=== PATIENT | female | born 1930 | race Caucasian/White ===

== ENCOUNTER 2017-07-04 15:42 | Inpatient (IN) | payer OTHER, MEDICAID ==
[~2017-07-04] VITALS: Ht 157.4 cm; Wt 104.3 kg
--- NOTE | ~2017-07-04 | PR ---
[place], [place] PROGRESS NOTE NAME: YAO EDUARDO UNIT #: [id number] ROOM: 316 DOCTOR: FAISAL HAMMOND MD BIRTHDATE: [birth year] DOS: 07/06/2017 CHIEF COMPLAINT: "Hello, how are you?" SUMMARY OF THE VISIT: The patient was interviewed as she was resting in bed. She engaged readily in conversation, albeit superficial. There was no agitation or aggression. There was no mood lability. She was very confused, however, and her responses tended to be at times nonsensical and inappropriate to the questions asked of her. MENTAL STATUS: She is alert and oriented to person, doubtful to place, certainly not time. Mood is still somewhat depressed with anxious overtones. There is still the presence of paranoia. Short term memory is exceedingly poor. PLAN: I will continue to push the Exelon patch up to a more therapeutic level, moving from 4.6 mg a day to 9.5 mg a day, continue to support and monitor, engaging in individual and ken milieu activity and discharging when stable. FAISAL HAMMOND MD CM:PNTRANS [id number] FAISAL HAMMOND MD 07/08/17 0539 interface
--- NOTE | ~2017-07-04 | WRIGHTHP ---
[place], [place] PATIENT HISTORY AND PHYSICAL EXAM NAME: YAO EDUARDO [facility] #: [id number] UNIT #: [id number] ROOM: 316 DOCTOR: FAISAL HAMMOND MD BIRTHDATE: [birth year] DOS: 07/05/2017 INITIAL PSYCHIATRIC EVALUATION CHIEF COMPLAINT: "Oh, hello there, how are you today? Thanks for breakfast. HISTORY OF PRESENT ILLNESS: This is an 87-year-old white female who is a resident of [facility]. The patient has become increasingly depressed and paranoid there. She repeatedly feels that she is getting raped at night and is constantly stating she is fearful that she will be raped again. She is not sleeping or eating well. She is not allowing them to attend her ADLs. She has become frankly combative and resistive to care. She has become verbally and physically aggressive. She is putting herself and others at significant risk of harm. She continues to voice these irrational fears and is admitted now to rule out organic factors, to stabilize on medication, to return then to [facility] or alternative placement when stable. PAST MEDICAL HISTORY: Remarkable for coronary artery disease, chronic AFib, chronic kidney disease stage III, GERD, gout, hyperlipidemia, hypertension, osteoarthritis, osteoporosis, peripheral vascular disease, sensorineural hearing loss of both ears, systolic and diastolic congestive heart failure and vascular dementia. MENTAL STATUS: She is alert and oriented to self. It is unclear if she realizes she is in the hospital. She is certainly not oriented to time. Mood does seem to be overwhelmingly depressed. She appears sad and is very anxious. She is grossly delusional and paranoid. She processes slowly, some of this is exacerbated by her hearing loss. Short term memory is exceedingly poor. DIAGNOSES: Major depression, recurrent with psychotic features and Alzheimer's dementia. PLAN: I will go ahead and discontinue her Xanax at this point; trying to simplify her regimen and the Xanax could at times be causing some behavioral disinhibition. I will augment her Namenda with Exelon patch 4.6 mg a day and plan to titrate this up as needed and as tolerated. I will maintain the Risperdal to break the psychosis and the Remeron to impact positively on the depression. We will engage in individual and ken milieu activity, discharging then when psychiatrically stable. [place], [place] PATIENT HISTORY AND PHYSICAL EXAM NAME: YAO EDUARDO UNIT #: [id number] ROOM: [facility] DOCTOR: FAISAL HAMMOND MD BIRTHDATE: [birth year] FAISAL HAMMOND MD CM:HISPHYS:PATIENT HISTORY AND PHYSICAL EXAMINATION [phone] [id number] FAISAL HAMMOND MD 07/05/1712 interface
--- NOTE | ~2017-07-04 | PR ---
[place], [place] PROGRESS [id number] UN[facility] #: [id number] ROOM: 316 DOCTOR: FAISAL HAMMOND MD BIRTHDATE: [birth year] DOS: 07/08/2017 CHIEF COMPLAINT: "The patient was sleeping very soundly and could not be awakened." SUMMARY OF THE VISIT: The patient was resting in bed. She had a horrible evening. She began screaming at the top of her lungs at 6:00 p.m. and did not stop and so she was given several PRNs at night to finally help her sleep. This has been the pattern that was very much present at the senior care. She continues to exhibit extreme paranoia and delusions per the nursing staff. MENTAL STATUS: My mental status was limited due to her level of somnolence. PLAN: I will discontinue the Risperdal. I will start Latuda 40 mg to be given at 1800 hours to attempt to head off this screaming. The Latuda will stabilize mood as well as decrease psychosis. We will engage in individual and ken milieu activities, returning to the least restrictive environment when psychiatrically stable. FAISAL HAMMOND MD CM:PNTRANS [id number] FAISAL HAMMOND MD 07/08/17 1105 interface
--- NOTE | ~2017-07-04 | PR ---
[place], [place] PROGRESS NOTE NAME: YAO EDUARDO UNIT #: [id number] ROOM: 316 DOCTOR: FAISAL HAMMOND MD BIRTHDATE: [birth year] DOS: 07/07/2017 CHIEF COMPLAINT: "I am okay." SUMMARY OF THE VISIT: The patient was communicated in the dining area with a white board. I did ask her if she was feeling okay. She nodded that she did. I asked her if she needed anything she nodded that she did not. I ask her if she was feeling better since she has been here, she nodded that she does attempt to communicate. Her speech is a bit difficult to understand, but she is understandable. She seemed calm and fairly relaxed as she was eating her breakfast this morning. She voiced no other complaints. MENTAL STATUS: She is alert and oriented to person, place, but not necessarily time. Mood seems to be trending towards euthymia. Affect is more appropriate. There is no hypomania or adali. She did not voice any paranoia or delusions when given the chance. Short term memory remains very poor. PLAN: I had increased her Exelon patch to 9.5 mg yesterday. I will go ahead and increase it tomorrow to 13.3 maxing out potential benefit. Maintain Namenda 10 mg b.i.d. Maintain her Risperdal and her Remeron to combat the major depression with psychotic features. Engage in individual and ken milieu activity with the ultimate plan to return back to [facility] when psychiatrically stable. FAISAL HAMMOND MD CM:PNTRANS [id number] FAISAL HAMMOND MD 07/07/17 1004 interface
[2017-07-04 18:52] VITALS: BP 150/82
[2017-07-04] MEDS ORDERED: RAMIPRIL10 MG PO (19:53)
[2017-07-04] MEDS ORDERED: ALLOPURINOL100 MG PO (19:54)
[2017-07-04] MEDS ORDERED: HYDROXYZINE PAM25 M1 PO (19:55)
[2017-07-04] MEDS ORDERED: CLOPIDOGREL75 MG PO (19:59)
[2017-07-04 20:00] VITALS: BP 145/86
[2017-07-04] MEDS ORDERED: ALPRAZOLAM0.25 M2 PO (20:40)
[2017-07-04] MEDS ORDERED: Transderm-Nitr0.2 MG TD (20:40)
[2017-07-04] MEDS ORDERED: BYSTOLIC2.5 MG PO (20:43)
[2017-07-04] MEDS ORDERED: RIVASTIGMINE1 EACH T (20:43)
[2017-07-04] MEDS ORDERED: NAMENDA10 MG PO (20:45)
[2017-07-04] MEDS ORDERED: SARNA ANTI-ITC222 ML T (20:48)
[2017-07-04] MEDS ORDERED: KENALOG 0.1%80 GM T (20:50)
[2017-07-04] MEDS ORDERED: AQUAPHOR OINTM396 GM T (20:52)
[2017-07-04] MEDS ORDERED: CELEXA20 MG PO (20:52)
[2017-07-04] MEDS ORDERED: DEPAKOTE250 MG PO (20:53)
[2017-07-04] MEDS ORDERED: DEPAKOTE ER500 MG PO (20:53)
[2017-07-04] MEDS ORDERED: BISCOLAX10 M1 R (20:56)
[2017-07-04 22:17] VITALS: BP 145/86
[2017-07-05 07:01] LABS: BASO % 0.3 % (0.0-1.0); EOS # 0.4 10*3/uL (0.0-0.4); EOS % 5.6 % (1.0-4.0); HEMATOCRIT 37.1 % (37.0-47.0); HEMOGLOBIN 11.1 g/dl (12.0-16.0); LYMPH # 0.8 10*3/uL (1.3-4.4); LYMPH % 13.2 % (27.0-41.0); MEAN CELL VOLUME 99.2 fl (81.0-99.0); MEAN CORPUSCULAR HGB 29.7 pg (27.0-31.0); MEAN CORPUSCULAR HGB CONC 29.9 g/dl (33.0-37.0); MEAN PLATELET VOLUME 9.9 fl (9.6-12.3); MONO # 0.7 10*3/uL (0.1-1.0); MONO % 11.1 % (3.0-9.0); NEUT # 4.3 10*3/uL (2.3-7.9); NEUT % 69.3 % (47.0-73.0); PLATELET COUNT AUTOMATED 209 10*3/uL (130-400); RED BLOOD COUNT 3.74 10*6/uL (4.10-5.10); RED CELL DISTRI WIDTH 15.7 % (0-14.5); WHITE BLOOD COUNT 6.2 10*3/uL (4.8-10.8)
[2017-07-05 08:07] LABS: ALBUMIN 2.4 gm/dl (3.1-4.5); CREATININE 1.16 mg/dL (0.55-1.02); POTASSIUM 4.4 mmol/L (3.5-5.1); TOTAL PROTEIN 6.2 gm/dL (6.4-8.2)
[2017-07-05 08:14] LABS: VITAMIN D, 25-HYDROXY 14.8 ng/mL (30-100)
[2017-07-05 08:15] LABS: THYROID STIM HORMONE (HS) 2.63 uIU/ml (0.358-4.75)
[2017-07-05 08:21] VITALS: BP 139/76
[2017-07-05 17:06] LABS: BILIRUBIN NEGATIVE (NEGATIVE); BLOOD 1+ (NEGATIVE); CLARITY CLOUDY (CLEAR); COLOR YELLOW (YELLOW); GLUCOSE NEGATIVE (NEGATIVE); KETONE NEGATIVE (NEGATIVE); LEUKO ESTERASE 3+ (NEGATIVE); NITRITE POSITIVE (NEGATIVE); PH 5.5 (5.0-9.0); SPECIFIC GRAVITY 1.025 (1.005-1.030); UROBILINOGEN 0.2 E.U./dl (0.2-1.0)
[2017-07-05 17:13] LABS: BACTERIA 2+; WBC TNTC wbc/hpf (0-5)
[2017-07-05 20:00] VITALS: BP 156/70
[2017-07-06 08:10] VITALS: BP 143/78
[2017-07-06 20:00] VITALS: BP 141/72
[2017-07-07 09:22] VITALS: BP 140/70
[2017-07-07 20:00] VITALS: BP 135/72
[2017-07-08 08:02] VITALS: BP 138/68
[2017-07-08 20:00] VITALS: BP 142/87
[2017-07-09 08:04] VITALS: BP 159/85
== END 2017-07-09 12:00 | disposition other institution (70) | DRG 884 ==
LOC: 3N 15:42
PROVIDERS: Psychiatry & Neurology Psychiatry
DX: F01.51 Vascular dementia, unspecified severity, with behavioral disturbance (principal); L89.302 Pressure ulcer of unspecified buttock, stage 2; I13.0 Hypertensive heart and chronic kidney disease with heart failure and stage 1 through stage 4 chronic kidney disease, or unspecified chronic kidney disease; F33.3 Major depressive disorder, recurrent, severe with psychotic symptoms; I48.2 Chronic atrial fibrillation; I50.42 Chronic combined systolic (congestive) and diastolic (congestive) heart failure; L89.522 Pressure ulcer of left ankle, stage 2; L89.512 Pressure ulcer of right ankle, stage 2; F02.81 Dementia in other diseases classified elsewhere, unspecified severity, with behavioral disturbance; F23 Brief psychotic disorder; G30.9 Alzheimer's disease, unspecified; H90.3 Sensorineural hearing loss, bilateral; I73.9 Peripheral vascular disease, unspecified; E78.5 Hyperlipidemia, unspecified; K21.9 Gastro-esophageal reflux disease without esophagitis; M10.9 Gout, unspecified; L30.4 Erythema intertrigo; M19.90 Unspecified osteoarthritis, unspecified site; M81.0 Age-related osteoporosis without current pathological fracture; N18.3 Chronic kidney disease, stage 3 (moderate); I25.10 Atherosclerotic heart disease of native coronary artery without angina pectoris; F41.1 Generalized anxiety disorder; D53.9 Nutritional anemia, unspecified; D72.810 Lymphocytopenia; G40.901 Epilepsy, unspecified, not intractable, with status epilepticus; Z82.49 Family history of ischemic heart disease and other diseases of the circulatory system; Z88.0 Allergy status to penicillin; Z88.2 Allergy status to sulfonamides; Z88.8 Allergy status to other drugs, medicaments and biological substances; Z88.6 Allergy status to analgesic agent; Z79.899 Other long term (current) drug therapy; Z79.01 Long term (current) use of anticoagulants; Z88.1 Allergy status to other antibiotic agents; Z91.041 Radiographic dye allergy status

== ENCOUNTER 2017-07-09 12:01 | Emergency (ER) | payer OTHER, MEDICAID ==
[~2017-07-09] VITALS: Wt 84.4 kg
[~2017-07-09 12:01] MED LIST: ALLOPURINOL100 MG PO; ALPRAZOLAM0.25 M2 PO; AQUAPHOR OINTM396 GM T; BISCOLAX10 M1 R; BYSTOLIC2.5 MG PO; CELEXA20 MG PO; CLOPIDOGREL75 MG PO; DEPAKOTE ER500 MG PO; DEPAKOTE250 MG PO; HYDROXYZINE PAM25 M1 PO; KENALOG 0.1%80 GM T; NAMENDA10 MG PO; RAMIPRIL10 MG PO; RIVASTIGMINE1 EACH T; SARNA ANTI-ITC222 ML T; Transderm-Nitr0.2 MG TD
[2017-07-09 12:59] LABS: BASO % 0.4 % (0.0-1.0); EOS # 0.2 10*3/uL (0.0-0.4); EOS % 2.4 % (1.0-4.0); HEMATOCRIT 33.5 % (37.0-47.0); HEMOGLOBIN 10.6 g/dl (12.0-16.0); LYMPH # 0.5 10*3/uL (1.3-4.4); LYMPH % 6.4 % (27.0-41.0); MEAN CELL VOLUME 97.1 fl (81.0-99.0); MEAN CORPUSCULAR HGB 30.7 pg (27.0-31.0); MEAN CORPUSCULAR HGB CONC 31.6 g/dl (33.0-37.0); MEAN PLATELET VOLUME 10.5 fl (9.6-12.3); MONO # 0.5 10*3/uL (0.1-1.0); MONO % 6.6 % (3.0-9.0); NEUT # 6.3 10*3/uL (2.3-7.9); NEUT % 83.3 % (47.0-73.0); NUCLEATED RED BLOOD CELL 0.3 % (0.0-0.0); PLATELET COUNT AUTOMATED 195 10*3/uL (130-400); RED BLOOD COUNT 3.45 10*6/uL (4.10-5.10); RED CELL DISTRI WIDTH 15.8 % (0-14.5); WHITE BLOOD COUNT 7.6 10*3/uL (4.8-10.8)
[2017-07-09 13:08] LABS: ACT PARTIAL THROMBO TIME 21.2 SECONDS (20.8-31.5)
[2017-07-09 13:20] LABS: BILIRUBIN NEGATIVE (NEGATIVE); BLOOD TRACE-LYSED (NEGATIVE); CLARITY CLEAR (CLEAR); COLOR YELLOW (YELLOW); GLUCOSE NEGATIVE (NEGATIVE); KETONE NEGATIVE (NEGATIVE); LEUKO ESTERASE TRACE (NEGATIVE); NITRITE NEGATIVE (NEGATIVE); UROBILINOGEN 0.2 E.U./dl (0.2-1.0)
[2017-07-09 13:20] LABS: ALBUMIN 2.2 gm/dl (3.1-4.5); ALKALINE PHOSPHATASE 91 U/L (45-117); BUN 22 mg/dl (7-24); CHLORIDE 112 mmol/L (98-107); CREATININE 1.03 mg/dL (0.55-1.02); LIPASE 50 U/L (73-393); POTASSIUM 4.6 mmol/L (3.5-5.1); SGOT/AST 30 IU/L (3-35); SGPT/ALT 24 U/L (12-78); SODIUM 144 mmol/L (136-145); TOTAL PROTEIN 5.9 gm/dL (6.4-8.2); TROPONIN I 0.025 ng/ml (<0.045)
[2017-07-09 13:29] LABS: BACTERIA 1+; EPITHELIAL CELLS 0-2; WBC 41-50 wbc/hpf (0-5)
== END 2017-07-09 23:01 ==
LOC: ED 12:01
PROVIDERS: Emergency Medicine
DX: G40.901 Epilepsy, unspecified, not intractable, with status epilepticus (principal); I13.0 Hypertensive heart and chronic kidney disease with heart failure and stage 1 through stage 4 chronic kidney disease, or unspecified chronic kidney disease; N18.3 Chronic kidney disease, stage 3 (moderate); I50.22 Chronic systolic (congestive) heart failure; E78.5 Hyperlipidemia, unspecified; M19.90 Unspecified osteoarthritis, unspecified site; K21.9 Gastro-esophageal reflux disease without esophagitis; I25.10 Atherosclerotic heart disease of native coronary artery without angina pectoris; I48.2 Chronic atrial fibrillation; M10.9 Gout, unspecified; M81.0 Age-related osteoporosis without current pathological fracture; Z88.0 Allergy status to penicillin; Z88.1 Allergy status to other antibiotic agents; Z88.8 Allergy status to other drugs, medicaments and biological substances; Z88.6 Allergy status to analgesic agent; Z79.899 Other long term (current) drug therapy